=== PATIENT | female | born 1950 | race Caucasian/White ===

== ENCOUNTER → 2025-03-03 15:19 | Outpatient (BNVA) | payer MEDICARE, OTHER, SELFPAY | PROVIDERS: PCP Family Medicine; Visit Provider Family Medicine | DX: E55.9 Vitamin D deficiency, unspecified (principal); E03.8 Other specified hypothyroidism; I10 Essential (primary) hypertension; R00.1 Bradycardia, unspecified | CPT/HCPCS: 80053; 80061; 82306; 84443; 85025 ==